=== PATIENT | female | born 1995 | race Hispanic/Latino ===

== ENCOUNTER 2017-06-21 19:45 | Inpatient (IN) | payer BC ==
--- NOTE | 2017-06-21 21:05 | ED PDOC ---
HPI: Abdomen Time Seen by Provider: 06/21/17 20:31 Chief Complaint (Nursing): Abdominal Pain Chief Complaint (Provider): Abdominal pain History Per: Patient History/Exam Limitations: no limitations Onset/Duration Of Symptoms: Days (2) Additional Complaint(s): Patient is a 21 y/o female with no significant past medical history presenting to the emergency department for intermittent epigastric pain ongoing for two days. Reports that she always had stomach problems especially with eating. Patient was referred by her PMD for an abdominal CT to rule out appendicitis. Denies any current pain, fever, vomiting, nausea, constipation, or other complaints. PMD: Dr. Patricia Sykes Past Medical History Reviewed: Historical Data, Nursing Documentation, Vital Signs Vital Signs: Last Vital Signs Temp 98.3 F 06/22/17 01:11 Pulse 74 06/22/17 01:11 Resp 19 06/22/17 01:11 BP 113/72 06/22/17 01:11 Pulse Ox 96 06/22/17 01:11 - Family History Family History: States: Unknown Family Hx - Social History Current smoker - smoking cessation education provided: No Ex-Smoker (has not smoked in the last 12 months): No Alcohol: Social Drugs: Denies - Home Medications Home Medications: Ambulatory Orders Medication Instructions Recorded No Known Home Med 06/22/17 - Allergies Allergies/Adverse Reactions: Allergies Allergy/AdvReac Type Severity Reaction Status Date / Time No Known Allergies Allergy Verified 06/21/17 19:53 Review of Systems ROS Statement: Except As Marked, All Systems Reviewed And Found Negative Constitutional: Negative for: Fever Gastrointestinal: Positive for: Abdominal Pain (epigastric). Negative for: Nausea, Vomiting, Constipation Physical Exam - Reviewed Nursing Documentation Reviewed: Yes Vital Signs Reviewed: Yes - Physical Exam Appears: Positive for: Well, Non-toxic, No Acute Distress Head Exam: Positive for: ATRAUMATIC, NORMAL INSPECTION, NORMOCEPHALIC Skin: Positive for: Normal Color, Warm, Dry Eye Exam: Positive for: Normal appearance Neck: Positive for: Normal Cardiovascular/Chest: Positive for: Regular Rate, Rhythm Respiratory: Negative for: Accessory Muscle Use, Respiratory Distress Gastrointestinal/Abdominal: Positive for: Normal Exam, Soft, Tenderness ( Minimal lower abdominal tenderness bilaterally, and epigastric tenderness) Extremity: Positive for: Normal ROM. Negative for: Pedal Edema Neurologic/Psych: Positive for: Alert, Oriented (x3) - Laboratory Results Result Diagrams: 06/21/17 21:33 06/21/17 21:33 - ECG O2 Sat by Pulse Oximetry: 100 (RA) Pulse Ox Interpretation: Normal Medical Decision Making Medical Decision Making: Time: 20:45 Initial impression: gastritis vs. appendicitis vs. ulcer Initial plan: Abdominal/pelvic CT scan CMP Lactic Acid test Lipase ED Urine CBC Pepcid 20 mg Blood Culture Urine Culture Urinalysis Reevaluation Time: 23:14 CT Abd and Pelvis w/ IV Contrast Findings: Lower thorax: No acute findings. ABDOMEN: Liver: Unremarkable. No mass. Gallbladder and bile ducts: Unremarkable. No calcified stones. No ductal dilation. Pancreas: Unremarkable. No mass. No ductal dilation. Spleen: Unremarkable. No splenomegaly. Adrenals: Unremarkable. No mass. Kidneys and ureters: Unremarkable. No solid mass. No hydronephrosis. Stomach and bowel: Unremarkable. No obstruction. No mucosal thickening. Appendix: The appendix measures approximately 8 mm in diameter with a fluid- filled lumen and wall thickness of approximately 3 mm with slight enhancement. There is question of slight surrounding induration may reflect early appendicitis. PELVIS: Bladder: The urinary bladder is decompressed but appears grossly normal. Reproductive: IUD in the lower uterine segment and cervix. ABDOMEN and PELVIS: Intraperitoneal space: Unremarkable. No free air. No significant fluid collection. Bones/joints: No acute fracture. No dislocation. Soft tissues: Unremarkable. Vasculature: Unremarkable. No abdominal aortic aneurysm. Lymph nodes: Unremarkable. No enlarged lymph nodes. IMPRESSION: 1. Low position of an IUD in the lower uterine segment and cervix. 2. The appendix measures 8 mm with a fluid-filled lumen and slight thickening and enhancement of the wall. There is question of slight surrounding induration and findings may reflect early appendicitis. 3. Otherwise negative CT abdomen/pelvis. No epigastric abnormalities are identified. 2330 Pt. made NPO. Spoke with Dr. Stroud who agrees to consult. associate vice president aware. Dr. Griffith accepts patient. Results explained to patient and questions answered. Patient states pain is 1/10 at this time. Scribe Attestation: Documented by Jyoti Schultz and Chay Monk, acting as scribes for Wayne Reid MD. Provider Scribe Attestation: All medical record entries made by the Scribe were at my direction and personally dictated by me. I have reviewed the chart and agree that the record accurately reflects my personal performance of the history, physical exam, medical decision making, and the department course for this patient. I have also personally directed, reviewed, and agree with the discharge instructions and disposition. Disposition - Clinical Impression Clinical Impression: Appendicitis - Disposition Disposition Time: 23:30 Condition: STABLE
[2017-06-21 21:42] LABS: BASO % 0.3 % (0.0-2.0); EOS # 0.1 K/uL (0.0-0.7); EOS % 0.6 % (0.0-4.0); HEMOGLOBIN 12.6 g/dL (12.0-16.0); LYMPH # 2.9 K/uL (1.0-4.3); LYMPH % 25.6 % (20.0-40.0); MEAN CELL VOLUME 89.7 fl (81.0-99.0); MEAN CORPUSCULAR HGB CONC 33.5 g/dL (33.0-37.0); MEAN PLATELET VOLUME 7.3 fl (7.2-11.7); MONO # 0.7 K/uL (0.0-0.8); MONO % 6.4 % (0.0-10.0); NEUT # 7.7 K/uL (1.8-7.0); NEUT % 67.1 % (50.0-75.0); NRBC % 0.1 % (0.0-0.0); RBC 4.2 Mil/uL (3.80-5.20); RED CELL DISTRIBUTION WIDTH 13.5 % (11.5-14.5); WHITE BLOOD COUNT 11.5 K/uL (4.8-10.8)
[2017-06-21 21:47] LABS: ALB/GLOB RATIO 1.3 (1.0-2.1); ALBUMIN 4.6 g/dL (3.5-5.0); ALT/SGPT 50 U/L (9-52); AST/SGOT 30 U/L (14-36); BLOOD UREA NITROGEN 8 mg/dl (7-17); CALCIUM 9.7 mg/dL (8.4-10.2); GFR AFRICAN-AMERICAN > 60; GFR NON-AFRICAN AMERICAN > 60; LIPASE 77 U/L (23-300)
[2017-06-21] MEDS ORDERED: Sodium Chloride 0.9% 50 ML IV ONE (22:03)
[2017-06-21] MEDS ORDERED: Iohexol 300 100 ML IJ ONE (22:03)
[2017-06-21 22:32] LABS: SQUAMOUS EPITHIAL 2 /hpf (0-5); URINE BACTERIA RARE (<OCC); URINE BILIRUBIN NEGATIVE (NEGATIVE); URINE BLOOD SMALL (NEGATIVE); URINE CLARITY CLEAR (Clear); URINE COLOR STRAW (YELLOW); URINE GLUCOSE (UA) NEG (Normal); URINE LEUKOCYTE ESTERASE SMALL Leu/uL (Negative); URINE NITRATE NEGATIVE (NEGATIVE); URINE PROTEIN NEGATIVE (NEGATIVE); URINE UROBILINOGEN 0.2-1.0 mg/dL (0.2-1.0)
[2017-06-21] MEDS ORDERED: Piperacillin/Tazobact 3.375 GM in Sodium Chloride 0.9% 100 ML IVPB STA (23:30)
[2017-06-21] MEDS ORDERED: Sodium Chloride 0.9% 1,000 ML IV STA (23:31)
--- NOTE | 2017-06-21 23:39 | CP.PCM.HP ---
History of Present Illness - History of Present Illness History of Present Illness: PCP: Patricia Sykes MD Chief complaint: Abdominal Pain HPI: 21 years old female with hx of stomach upsets where she takes TUMS. She comes referred by her PMD with 2 days of a localized, dull intermittent Periumbilical, epigastric pain with intensity 6/10. No fever, nausea, vomits. No diarrhea ,dysuria nor urinary frequencies. 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 ; works as a teacher FH: States: Unknown Family Hx Allergies: NKDA Medication: Reviewed - Social History Current smoker - smoking cessation education provided: No Ex-Smoker (has not smoked in the last 12 months): No Alcohol: Social Drugs: Denies - Allergies Allergies/Adverse Reactions: Present on Admission - Present on Admission Any Indicators Present on Admission: No History of DVT/PE: No History of Uncontrolled Diabetes: No Urinary Catheter: No Decubitus Ulcer Present: No Review of Systems - Constitutional Constitutional: absent: Chills, Fatigue, Fever, Headache - EENT Eyes: Requires Corrective Lenses. absent: Diplopia, Floaters, Sees Flashes Ears: absent: Decreased Hearing, Ear Discharge, Ear Pain, Tinnitus Nose/Mouth/Throat: absent: Epistaxis, Nasal Congestion, Nasal Discharge, Sinus Pain, Sinus Pressure - Cardiovascular Cardiovascular: absent: Chest Pain, Dyspnea, Edema - Respiratory Respiratory: absent: Cough, Dyspnea, Wheezing, Stridor, Chest Congestion - Gastrointestinal Gastrointestinal: Abdominal Pain. absent: Constipation, Diarrhea, Vomiting - Genitourinary Genitourinary: absent: Dysuria, Flank Pain, Hematuria, Urinary Frequency - Musculoskeletal Musculoskeletal: absent: Arthralgias, Back Pain, Joint Swelling, Numbness - Integumentary Integumentary: absent: Pruritus, Rash, Skin Ulcer, Sores, Striae, Swelling - Neurological Neurological: absent: Confusion, Dizziness, Focal Weakness, Headaches, Weakness - Psychiatric Psychiatric: absent: Anxiety, Depression, Panic Attacks - Endocrine Endocrine: absent: Palpitations, Polydipsia, Polyphagia, Polyuria - Hematologic/Lymphatic Hematologic: absent: Easy Bleeding, Easy Bruising Past Patient History - Past Social History Smoking Status: Never Smoked Chewing Tobacco Use: No Cigar Use: No Alcohol: Social Drugs: Denies Home Situation {Lives}: With Family - CARDIAC Hx Cardiac Disorders: No - PULMONARY Hx Asthma: Yes (Childhood Asthma) - NEUROLOGICAL Hx Neurological Disorder: No - HEENT Hx HEENT Problems: No - RENAL Hx Chronic Kidney Disease: No - ENDOCRINE/METABOLIC Hx Endocrine Disorders: No - HEMATOLOGICAL/ONCOLOGICAL Hx Blood Disorders: No - INTEGUMENTARY Hx Dermatological Problems: No - MUSCULOSKELETAL/RHEUMATOLOGICAL Hx Musculoskeletal Disorders: No - GASTROINTESTINAL Hx Gastrointestinal Disorders: No - GENITOURINARY/GYNECOLOGICAL Hx Genitourinary Disorders: No - PSYCHIATRIC Hx Psychophysiologic Disorder: No Hx Substance Use: No - SURGICAL HISTORY Hx Surgeries: No - ANESTHESIA Hx Anesthesia: No Meds Allergies/Adverse Reactions: Allergies Allergy/AdvReac Type Severity Reaction Status Date / Time No Known Allergies Allergy Verified 06/21/17 19:53 Physical Exam - Constitutional Appears: No Acute Distress - Head Exam Head Exam: ATRAUMATIC, NORMAL INSPECTION, NORMOCEPHALIC - Eye Exam Eye Exam: EOMI, Normal appearance Pupil Exam: NORMAL ACCOMODATION, PERRL - ENT Exam ENT Exam: Mucous Membranes Moist, Normal Exam, Normal External Ear Exam - Neck Exam Neck exam: Positive for: Full Rom, Normal Inspection. Negative for: Lymphadenopathy, Tenderness - Respiratory Exam Respiratory Exam: Clear to Auscultation Bilateral. absent: Rales, Rhonchi, Wheezes - Cardiovascular Exam Cardiovascular Exam: REGULAR RHYTHM, RRR, +S1, +S2. absent: Gallop, JVD, +S4 - GI/Abdominal Exam GI & Abdominal Exam: Normal Bowel Sounds, Soft. absent: Organomegaly, Tenderness - Rectal Exam Rectal Exam: Deferred - Extremities Exam Extremities exam: Positive for: normal inspection. Negative for: full ROM, joint swelling, pedal edema - Back Exam Back exam: NORMAL INSPECTION. absent: CVA tenderness (L), CVA tenderness (R) - Neurological Exam Neurological exam: Alert, CN II-XII Intact, Oriented x3, Reflexes Normal - Psychiatric Exam Psychiatric exam: Normal Affect, Normal Mood - Skin Skin Exam: Dry, Intact, Normal Color, Warm Results - Vital Signs Recent Vital Signs: Last Vital Signs Temp 98.3 F 06/21/17 19:49 Pulse 72 06/21/17 19:49 Resp 16 06/21/17 19:49 BP 123/77 06/21/17 19:49 Pulse Ox 100 06/21/17 23:20 - Labs Result Diagrams: 06/21/17 21:33 06/21/17 21:33 Labs: Laboratory Results - last 24 hr 06/21/17 06/21/17 06/21/17 21:33 21:33 21:33 WBC 11.5 H RBC 4.20 Hgb 12.6 Hct 37.6 MCV 89.7 MCH 30.0 MCHC 33.5 RDW 13.5 Plt Count 277 MPV 7.3 Neut % (Auto) 67.1 Lymph % (Auto) 25.6 [place] % (Auto) 6.4 Eos % (Auto) 0.6 Baso % (Auto) 0.3 Neut # 7.7 H Lymph # 2.9 [place] # 0.7 Eos # 0.1 Baso # 0.0 Sodium 141 Potassium 4.1 Chloride 102 Carbon Dioxide 26 Anion Gap 17 BUN 8 Creatinine 0.6 L Est GFR ( Amer) > 60 Est GFR (Non-Af Amer) > 60 Random Glucose 91 Lactic Acid Calcium 9.7 Total Bilirubin 0.4 AST 30 ALT 50 Alkaline Phosphatase 74 Total Protein 8.1 Albumin 4.6 Globulin 3.6 Albumin/Globulin Ratio 1.3 Lipase 77 Urine Color Straw Urine Clarity Clear Urine pH 6.0 Ur Specific [place] 1.012 Urine Protein Negative Urine Glucose (UA) Neg Urine Ketones Trace Urine Blood Small Urine Nitrate Negative Urine Bilirubin Negative Urine Urobilinogen 0.2-1.0 Ur Leukocyte Esterase Small Urine RBC (Auto) 7 H Urine Microscopic WBC 8 H Ur Squamous Epith Cells 2 Urine Bacteria Rare 06/21/17 21:33 WBC RBC Hgb Hct MCV MCH MCHC RDW Plt Count MPV Neut % (Auto) Lymph % (Auto) [place] % (Auto) Eos % (Auto) Baso % (Auto) Neut # Lymph # [place] # Eos # Baso # Sodium Potassium Chloride Carbon Dioxide Anion Gap BUN Creatinine Est GFR ( Amer) Est GFR (Non-Af Amer) Random Glucose Lactic Acid 0.8 Calcium Total Bilirubin AST ALT Alkaline Phosphatase Total Protein Albumin Globulin Albumin/Globulin Ratio Lipase Urine Color Urine Clarity Urine pH Ur Specific [place] Urine Protein Urine Glucose (UA) Urine Ketones Urine Blood Urine Nitrate Urine Bilirubin Urine Urobilinogen Ur Leukocyte Esterase Urine RBC (Auto) Urine Microscopic WBC Ur Squamous Epith Cells Urine Bacteria - Imaging and Cardiology CT scan - abdomen Status: Report reviewed by me Additional comment: EXAM: CT Abdomen and Pelvis With Intravenous Contrast EXAM DATE/TIME: Exam ordered 06/21/2017 8:45 PM FINDINGS: Lower thorax: No acute findings. ABDOMEN: Liver: Unremarkable. No mass. Gallbladder and bile ducts: Unremarkable. No calcified stones. No ductal dilation. Pancreas: Unremarkable. No mass. No ductal dilation. Spleen: Unremarkable. No splenomegaly. Adrenals: Unremarkable. No mass. Kidneys and ureters: Unremarkable. No solid mass. No hydronephrosis. Stomach and bowel: Unremarkable. No obstruction. No mucosal thickening. Appendix: The appendix measures approximately 8 mm in diameter with a fluid- filled lumen and wall thickness of approximately 3 mm with slight enhancement. There is question of slight surrounding induration may reflect early appendicitis. PELVIS: Bladder: The urinary bladder is decompressed but appears grossly normal. Reproductive: IUD in the lower uterine segment and cervix. ABDOMEN and PELVIS: Intraperitoneal space: Unremarkable. No free air. No significant fluid collection. Bones/joints: No acute fracture. No dislocation. Soft tissues: Unremarkable. Vasculature: Unremarkable. No abdominal aortic aneurysm. Lymph nodes: Unremarkable. No enlarged lymph nodes. IMPRESSION: 1. Low position of an IUD in the lower uterine segment and cervix. 2. The appendix measures 8 mm with a fluid-filled lumen and slight thickening and enhancement of the wall. There is question of slight surrounding induration and findings may reflect early appendicitis. 3. Otherwise negative CT abdomen/pelvis. No epigastric abnormalities are identified. Assessment & Plan - Assessment and Plan (Free Text) Assessment: #. Early Appendicites #. Leukocytosis Plan: 21 years old female with hx of stomach upsets where she takes TUMS. She comes referred by her PMD with 2 days of a localized, dull intermittent Periumbilical , epigastric pain with intensity 6/10. No fever, nausea, vomits. No diarrhea , dysuria nor urinary frequencies. #. Early Appendicites causing abdominal pain - Consult Surgery Dr Lind - NPO - IV fluids - Zosyn - Pepcid #. Leukocytosis - Follow CBC # Stress ulcer prophylaxis with Pepcid #. DVT prophylaxis with SCD #. Code Status: Full - Date & Time Date: 06/21/17 Time: 23:39
--- NOTE | 2017-06-22 00:15 | CP.PCM.CON ---
History of Present Illness - History of Present Illness History of Present Illness: General Surgery Consult Note for Dr. Parish Reason for Consult: abdominal pain 21 F with no significant past medical history presents to [facility] for abdominal pain. She states that she has had the pain for about 1.5 days. Patient went to Urgent care facility yesterday because pain had gotten worse and they referred her for Ct scan. This prompted her to be seen at [facility]. Patient denies associated nausea/vomiting or diarrhea. 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 She reports that she has been very fatigued last few days. She rates pain as moderate in severity. She describes pain as intermittent and dull located in the epigastric/ periumbilical. She denies any exacerbating or alleviating factors. Denies fever/ chills, chest pain, SOB, incontinence, melena, hematochezia, urinary symptoms. CT abdomen/pelvis reveals 8mm fluid filled appendix with thickening. 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 ; works as a teacher Review of Systems - Review of Systems All systems: reviewed and no additional remarkable complaints except (as per HPI ) Past Patient History - Past Social History Alcohol: Social Drugs: Denies - PSYCHIATRIC Hx Substance Use: No - SURGICAL HISTORY Hx Surgeries: No - ANESTHESIA Hx Anesthesia: No Meds Allergies/Adverse Reactions: Allergies Allergy/AdvReac Type Severity Reaction Status Date / Time No Known Allergies Allergy Verified 06/21/17 19:53 - Medications Medications: Current Medications Famotidine (Pepcid) 20 mg IVP DAILY JEYSON Sodium Chloride (Sodium Chloride 0.9%) 1,000 mls @ 250 mls/hr IV .Q4H STA Stop: 06/22/17 03:30 Piperacillin Sod/Tazobactam (Sod 3.375 gm/ Sodium Chloride) 100 mls @ 100 mls/ hr IVPB STAT STA PRN Reason: Protocol Stop: 06/22/17 00:29 Piperacillin Sod/Tazobactam (Sod 3.375 gm/ Sodium Chloride) 100 mls @ 100 mls/ hr IVPB Q6 JEYSON PRN Reason: Protocol Ondansetron HCl (Zofran Inj) 4 mg IVP Q4 PRN PRN Reason: Nausea/Vomiting Physical Exam - Constitutional Appears: Well, No Acute Distress - Head Exam Head Exam: ATRAUMATIC, NORMOCEPHALIC - Eye Exam Eye Exam: EOMI, Normal appearance Pupil Exam: PERRL - ENT Exam ENT Exam: Mucous Membranes Moist - Respiratory Exam Respiratory Exam: NORMAL BREATHING PATTERN - Cardiovascular Exam Cardiovascular Exam: REGULAR RHYTHM - GI/Abdominal Exam GI & Abdominal Exam: Soft, Tenderness (epigastric/periumbilical). absent: Distended, Firm, Guarding, Hernia, Rebound, Rigid Additional comments: (-)Mcburney's, Rovsing, obturator - Extremities Exam Extremities exam: Positive for: normal capillary refill, pedal pulses present. Negative for: calf tenderness - Back Exam Back exam: absent: CVA tenderness (L), CVA tenderness (R) - Neurological Exam Neurological exam: Alert, CN II-XII Intact, Oriented x3 - Psychiatric Exam Psychiatric exam: Normal Affect, Normal Mood - Skin Skin Exam: Dry, Intact, Normal Color, Warm Results - Vital Signs Recent Vital Signs: Last Vital Signs Temp 98.3 F 06/21/17 19:49 Pulse 72 06/21/17 19:49 Resp 16 06/21/17 19:49 BP 123/77 06/21/17 19:49 Pulse Ox 100 06/21/17 23:20 - Labs Result Diagrams: 06/21/17 21:33 06/21/17 21:33 Labs: Laboratory Results - last 24 hr 06/21/17 06/21/17 06/21/17 21:33 21:33 21:33 WBC 11.5 H RBC 4.20 Hgb 12.6 Hct 37.6 MCV 89.7 MCH 30.0 MCHC 33.5 RDW 13.5 Plt Count 277 MPV 7.3 Neut % (Auto) 67.1 Lymph % (Auto) 25.6 [place] % (Auto) 6.4 Eos % (Auto) 0.6 Baso % (Auto) 0.3 Neut # 7.7 H Lymph # 2.9 [place] # 0.7 Eos # 0.1 Baso # 0.0 Sodium 141 Potassium 4.1 Chloride 102 Carbon Dioxide 26 Anion Gap 17 BUN 8 Creatinine 0.6 L Est GFR ( Amer) > 60 Est GFR (Non-Af Amer) > 60 Random Glucose 91 Lactic Acid Calcium 9.7 Total Bilirubin 0.4 AST 30 ALT 50 Alkaline Phosphatase 74 Total Protein 8.1 Albumin 4.6 Globulin 3.6 Albumin/Globulin Ratio 1.3 Lipase 77 Urine Color Straw Urine Clarity Clear Urine pH 6.0 Ur Specific [place] 1.012 Urine Protein Negative Urine Glucose (UA) Neg Urine Ketones Trace Urine Blood Small Urine Nitrate Negative Urine Bilirubin Negative Urine Urobilinogen 0.2-1.0 Ur Leukocyte Esterase Small Urine RBC (Auto) 7 H Urine Microscopic WBC 8 H Ur Squamous Epith Cells 2 Urine Bacteria Rare 06/21/17 21:33 WBC RBC Hgb Hct MCV MCH MCHC RDW Plt Count MPV Neut % (Auto) Lymph % (Auto) [place] % (Auto) Eos % (Auto) Baso % (Auto) Neut # Lymph # [place] # Eos # Baso # Sodium Potassium Chloride Carbon Dioxide Anion Gap BUN Creatinine Est GFR ( Amer) Est GFR (Non-Af Amer) Random Glucose Lactic Acid 0.8 Calcium Total Bilirubin AST ALT Alkaline Phosphatase Total Protein Albumin Globulin Albumin/Globulin Ratio Lipase Urine Color Urine Clarity Urine pH Ur Specific [place] Urine Protein Urine Glucose (UA) Urine Ketones Urine Blood Urine Nitrate Urine Bilirubin Urine Urobilinogen Ur Leukocyte Esterase Urine RBC (Auto) Urine Microscopic WBC Ur Squamous Epith Cells Urine Bacteria Assessment & Plan - Assessment and Plan (Free Text) Plan: 21 F with abdominal pain with CT findings of 8mm fluid filled appendix with thickening -NPO -IV antibiotics -IV fluids -Analgesics/anti-emetics PRN -Plan for OR later today -Discussed with Dr. Марина Nation PGY1
[2017-06-22] MEDS ORDERED: Piperacillin/Tazobact 3.375 gm Inj IVPB ONE (00:40)
[2017-06-22] MEDS ORDERED: HYDROmorphone 0.5 mg/0.5 ml ISec IVP PRN (01:38)
[2017-06-22] MEDS: Lactated Ringer's 1,000 ML IV SCH ×2 (01:46→05:33)
[2017-06-22] MEDS: Piperacillin/Tazobact 3.375 GM in Sodium Chloride 0.9% 100 ML IVPB SCH ×2 (05:33→10:59)
[2017-06-22 06:26] LABS: BASO % 0.5 % (0.0-2.0); EOS # 0.1 K/uL (0.0-0.7); EOS % 1.2 % (0.0-4.0); HEMOGLOBIN 11.9 g/dL (12.0-16.0); LYMPH # 2.4 K/uL (1.0-4.3); LYMPH % 31.1 % (20.0-40.0); MEAN CORPUSCULAR HEMOGLOBIN 30.1 pg (27.0-31.0); MEAN CORPUSCULAR HGB CONC 33.8 g/dL (33.0-37.0); MEAN PLATELET VOLUME 7.5 fl (7.2-11.7); MONO # 0.7 K/uL (0.0-0.8); MONO % 9.1 % (0.0-10.0); NEUT # 4.5 K/uL (1.8-7.0); NEUT % 58.1 % (50.0-75.0); RBC 3.94 Mil/uL (3.80-5.20); RED CELL DISTRIBUTION WIDTH 13.1 % (11.5-14.5); WHITE BLOOD COUNT 7.8 K/uL (4.8-10.8)
[2017-06-22 08:17] VITALS: BP 117/73; PULSE 64; RESP 20; TEMP 97.9; O2SAT 98
--- NOTE | 2017-06-22 08:26 | CP.PCM.PN ---
Subjective - Date & Time of Evaluation Date of Evaluation: 06/22/17 Time of Evaluation: 08:21 - Subjective Subjective: 21 years old female with no significant PMHx was seen and evaluated at bedside for acute stomach pain. Patient is AAOx3 and is in NAD. Patient denies of any acute overnight events. Patient reports that she is feeling a lot better than she did yesterday but still feels little tenderness on the right side of her belly. Denies of any recent F/N/V/C/SOB/CP/headache/diarrhea. Denies of having any other complains at this time. Objective - Vital Signs/Intake and Output Vital Signs (last 24 hours): Temp Pulse Resp BP Pulse Ox 97.9 F 64 20 117/73 98 06/22/17 08:16 06/22/17 08:16 06/22/17 08:16 06/22/17 08:16 06/22/17 08:16 - Medications Medications: Current Medications Famotidine (Pepcid) 20 mg IVP DAILY [facility] Hydromorphone HCl (Dilaudid) 0.5 mg IVP Q3H PRN PRN Reason: Pain, severe (8-10) Piperacillin Sod/Tazobactam (Sod 3.375 gm/ Sodium Chloride) 100 mls @ 100 mls/ hr IVPB Q6H JEYSON PRN Reason: Protocol Last Admin: 06/22/17 05:33 Dose: 100 mls/hr Lactated Ringer's (Lactated Ringer's) 1,000 mls @ 125 mls/hr IV .Q8H JEYSON Last Admin: 06/22/17 05:33 Dose: 125 mls/hr Ondansetron HCl (Zofran Inj) 4 mg IVP Q4 PRN PRN Reason: Nausea/Vomiting - Labs Labs: 06/22/17 05:45 06/21/17 21:33 - Constitutional Appears: Well, Non-toxic, No Acute Distress - Head Exam Head Exam: ATRAUMATIC - Eye Exam Eye Exam: Normal appearance - ENT Exam ENT Exam: Normal Exam - Neck Exam Neck Exam: Full ROM, Normal Inspection - Respiratory Exam Respiratory Exam: Clear to Ausculation Bilateral, NORMAL BREATHING PATTERN. absent: Rales, Rhonchi, Wheezes - Cardiovascular Exam Cardiovascular Exam: REGULAR RHYTHM, +S1, +S2 - GI/Abdominal Exam GI & Abdominal Exam: Soft, Normal Bowel Sounds Additional comments: dull periumbilical, epigastric tenderness - Rectal Exam Rectal Exam: Deferred - Extremities Exam Extremities Exam: Full ROM, Normal Capillary Refill, Normal Inspection. absent : Calf Tenderness, Joint Swelling, Pedal Edema, Tenderness - Back Exam Back Exam: Full ROM, NORMAL INSPECTION - Neurological Exam Neurological Exam: Alert, Awake, Oriented x3 - Psychiatric Exam Psychiatric exam: Normal Affect, Normal Mood - Skin Skin Exam: Intact, Normal Color, Warm Assessment and Plan - Assessment and Plan (Free Text) Assessment: 21 years old female with no significant PMHx was at bedside for acute stomach pain secondary to early appendicitis Plan: 1). Early Appendicites causing abdominal pain - CT Abdomen - Reveals 8mm fluid filled appendix with thickening. - Surgery Consult - Dr Lind; Recommendations appreciated - no surgery recommended at this time - GI consult - Dr. Gregory - Outpatient Endoscopy - Regular diet - Abx - IV fluids - Zosyn - Pepcid 2). DVT prophylaxis - SCD - Ambulating
--- NOTE | 2017-06-22 08:47 | CP.PCM.PCO ---
Physician Communication Note - Physician Communication Note Physician Communication Note: No appendicitis - start diet - enema - d/c if tolerates w/ BM
--- NOTE | 2017-06-22 09:37 | CT ---
PROCEDURE: CT Abdomen and Pelvis with contrast HISTORY: epig/berta-umb pain COMPARISON: None. TECHNIQUE: Contrast dose: 90 cc Omnipaque 300 Radiation dose: Total exam DLP = 401.09 mGy-cm. This CT exam was performed using one or more of the following dose reduction techniques: Automated exposure control, adjustment of the mA and/or kV according to patient size, and/or use of iterative reconstruction technique. FINDINGS: LOWER THORAX: Unremarkable. LIVER: Unremarkable. No gross lesion or ductal dilatation. GALLBLADDER AND BILE DUCTS: Unremarkable. PANCREAS: Unremarkable. No gross lesion or ductal dilatation. SPLEEN: Unremarkable. ADRENALS: Unremarkable. No mass. KIDNEYS AND URETERS: Unremarkable. No hydronephrosis. No solid mass. VASCULATURE: Unremarkable. No aortic aneurysm. BOWEL: Unremarkable. No obstruction. No gross mural thickening. APPENDIX: Mildly edematous appendix, thickening contrast-enhancing wall of the appendix consistent with early acute appendicitis. PERITONEUM: Unremarkable. No free fluid. No free air. LYMPH NODES: Unremarkable. No enlarged lymph nodes. BLADDER: Unremarkable. REPRODUCTIVE: Low-lying intrauterine contraceptive device, of portions are in the cervix common the remainder in the lower uterine segment. Multiple subcentimeter follicles. BONES: No acute fracture. OTHER FINDINGS: None. IMPRESSION: Early acute appendicitis. Additional benign and/or incidental findings described above. Concordant results (preliminary interpretation) provided by [employer]. Procedure Completed: 22:16 Preliminary ([facility]) Report: Dictated and Authenticated: 23:14 Final Interpretation: 09:35 2017.
[2017-06-22] MEDS ORDERED: Pantoprazole 20 mg EC Tab PO SCH (10:15)
--- NOTE | 2017-06-22 13:04 | CP.PCM.CON ---
History of Present Illness - History of Present Illness History of Present Illness: PGY4 Initial GI Consult Silvana Barksdale is a 21F w/ no significant medical history who presented to the ER with complaints if abdominal pain. Pt states that the onset was sudden and 2 days ago. She notes that after she had a free sample of coffee at [employer], she started to experience severe abd pain located in the epigastrum. She denies any radiation of the pain. She notes that the pain never alleviated which brought her to Urgent Care. Panda refered her to ER for further eval and to rule out apendicitis. In the ER she was noted to have appediceal fluid collection but no inflammation. CT findings as per radiologist suggested early appendicitis. She was started on Zosyn and surgery recommended conservative management. GI was consulted for further eval. She notes that she started to become constipated after receiving pain medication in the ER. She was able to have a BM today after an enema. She denies any hx of constipation at home. She notes that she had a period of a few months , last year when she started to have chronic diarrhea. She denies any fever, chills or diaphoresis. 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 PMHx: Asthma PSHx: None Social hx: denies any illicit drug use or smoking, social drinker Endo hx: none Family hx: her mother has GI issues but pt does not recall diagnosis or tx ROS: 12-point ROS conducted neg other than above Past Patient History - Past Medical History & Family History Past Medical History?: Yes - Past Social History Alcohol: Social Drugs: Denies - CARDIAC Hx Cardiac Disorders: No - PULMONARY Hx Respiratory Disorders: Yes Hx Asthma: Yes (Childhood Asthma) Hx Bronchitis: Yes Hx Pneumonia: Yes - NEUROLOGICAL Hx Neurological Disorder: No - HEENT Hx HEENT Problems: No - RENAL Hx Chronic Kidney Disease: No - ENDOCRINE/METABOLIC Hx Endocrine Disorders: No - HEMATOLOGICAL/ONCOLOGICAL Hx Blood Disorders: No - INTEGUMENTARY Hx Dermatological Problems: No - MUSCULOSKELETAL/RHEUMATOLOGICAL Hx Musculoskeletal Disorders: No Hx Falls: No - GASTROINTESTINAL Hx Gastrointestinal Disorders: Yes Other/Comment: Hx of stomach upsets after eating too fast or spicy food as per pt - GENITOURINARY/GYNECOLOGICAL Hx Genitourinary Disorders: No - PSYCHIATRIC Hx Substance Use: No - SURGICAL HISTORY Hx Surgeries: No - ANESTHESIA Hx Anesthesia: No Meds Allergies/Adverse Reactions: Allergies Allergy/AdvReac Type Severity Reaction Status Date / Time No Known Allergies Allergy Verified 06/21/17 19:53 - Medications Medications: Current Medications Famotidine (Pepcid) 20 mg IVP DAILY [facility] Last Admin: 06/22/17 08:47 Dose: 20 mg Hydromorphone HCl (Dilaudid) 0.5 mg IVP Q3H PRN PRN Reason: Pain, severe (8-10) Last Admin: 06/22/17 11:08 Dose: 0.5 mg Piperacillin Sod/Tazobactam (Sod 3.375 gm/ Sodium Chloride) 100 mls @ 100 mls/ hr IVPB Q6H [facility] PRN Reason: Protocol Last Admin: 06/22/17 10:59 Dose: 100 mls/hr Lactated Ringer's (Lactated Ringer's) 1,000 mls @ 125 mls/hr IV .Q8H [facility] Last Admin: 06/22/17 05:33 Dose: 125 mls/hr Ondansetron HCl (Zofran Inj) 4 mg IVP Q4 PRN PRN Reason: Nausea/Vomiting Last Admin: 06/22/17 11:18 Dose: 4 mg Pantoprazole Sodium (Protonix Ec Tab) 20 mg PO DAILY [facility] Last Admin: 06/22/17 10:58 Dose: 20 mg Physical Exam - Constitutional Appears: No Acute Distress - Head Exam Head Exam: ATRAUMATIC, NORMOCEPHALIC - Eye Exam Eye Exam: Normal appearance - ENT Exam ENT Exam: Mucous Membranes Moist - Respiratory Exam Respiratory Exam: Clear to Auscultation Bilateral, NORMAL BREATHING PATTERN. absent: Rales, Rhonchi, Wheezes, Respiratory Distress - Cardiovascular Exam Cardiovascular Exam: REGULAR RHYTHM, +S1, +S2 - GI/Abdominal Exam GI & Abdominal Exam: Normal Bowel Sounds, Soft, Tenderness (slight tenderness in the epigastrum). absent: Guarding, Hernia, Organomegaly - Extremities Exam Extremities exam: Negative for: joint swelling, pedal edema - Neurological Exam Neurological exam: Alert, Oriented x3 - Psychiatric Exam Psychiatric exam: Normal Affect, Normal Mood - Skin Skin Exam: Dry, Intact, Normal Color, Warm Results - Vital Signs Recent Vital Signs: Last Vital Signs Temp 97.9 F 06/22/17 08:16 Pulse 64 06/22/17 08:16 Resp 20 06/22/17 08:16 BP 117/73 06/22/17 08:16 Pulse Ox 98 06/22/17 08:16 - Labs Result Diagrams: 06/22/17 05:45 06/21/17 21:33 Labs: Laboratory Results - last 24 hr 06/21/17 06/21/17 06/21/17 21:33 21:33 21:33 WBC 11.5 H RBC 4.20 Hgb 12.6 Hct 37.6 MCV 89.7 MCH 30.0 MCHC 33.5 RDW 13.5 Plt Count 277 MPV 7.3 Neut % (Auto) 67.1 Lymph % (Auto) 25.6 [place] % (Auto) 6.4 Eos % (Auto) 0.6 Baso % (Auto) 0.3 Neut # 7.7 H Lymph # 2.9 [place] # 0.7 Eos # 0.1 Baso # 0.0 Sodium 141 Potassium 4.1 Chloride 102 Carbon Dioxide 26 Anion Gap 17 BUN 8 Creatinine 0.6 L Est GFR ( Amer) > 60 Est GFR (Non-Af Amer) > 60 Random Glucose 91 Lactic Acid Calcium 9.7 Total Bilirubin 0.4 AST 30 ALT 50 Alkaline Phosphatase 74 Total Protein 8.1 Albumin 4.6 Globulin 3.6 Albumin/Globulin Ratio 1.3 Lipase 77 Urine Color Straw Urine Clarity Clear Urine pH 6.0 Ur Specific [place] 1.012 Urine Protein Negative Urine Glucose (UA) Neg Urine Ketones Trace Urine Blood Small Urine Nitrate Negative Urine Bilirubin Negative Urine Urobilinogen 0.2-1.0 Ur Leukocyte Esterase Small Urine RBC (Auto) 7 H Urine Microscopic WBC 8 H Ur Squamous Epith Cells 2 Urine Bacteria Rare 06/21/17 06/22/17 21:33 05:45 WBC 7.8 RBC 3.94 Hgb 11.9 L Hct 35.0 MCV 89.0 MCH 30.1 MCHC 33.8 RDW 13.1 Plt Count 268 MPV 7.5 Neut % (Auto) 58.1 Lymph % (Auto) 31.1 [place] % (Auto) 9.1 Eos % (Auto) 1.2 Baso % (Auto) 0.5 Neut # 4.5 Lymph # 2.4 [place] # 0.7 Eos # 0.1 Baso # 0.0 Sodium Potassium Chloride Carbon Dioxide Anion Gap BUN Creatinine Est GFR ( Amer) Est GFR (Non-Af Amer) Random Glucose Lactic Acid 0.8 Calcium Total Bilirubin AST ALT Alkaline Phosphatase Total Protein Albumin Globulin Albumin/Globulin Ratio Lipase Urine Color Urine Clarity Urine pH Ur Specific [place] Urine Protein Urine Glucose (UA) Urine Ketones Urine Blood Urine Nitrate Urine Bilirubin Urine Urobilinogen Ur Leukocyte Esterase Urine RBC (Auto) Urine Microscopic WBC Ur Squamous Epith Cells Urine Bacteria Assessment & Plan - Assessment and Plan (Free Text) Assessment: Silvana Barksdale is a 21F w/ no sig medical hx who presents to the ER with abd pain. Her pain is located in the epigastrum Abd pain etiology unknown; DDx: gastritis, early appendicitis, PUD, masked gastroenteritis Constipation likely opiod induced Early appendicitis? Plan: -abx as per surgery -recommend continues protonix or omeprazaole 40mg PO in the AM -advance diet as tolerated -send for stool studies -decrease opiod, likely causing constipation ' -recommend f/u with Dr. Gregory in 2 weeks at her office -EGD as an oupt -avoid NSAIDs D/W Dr. Gregory
--- NOTE | 2017-06-22 14:40 | CP.PCM.DIS ---
<[facility] Last Filed: 06/22/17 14:28> Provider - Provider Date of Admission: 06/21/17 23:30 Attending physician: Jerrod Griffith Time Spent in preparation of Discharge (in minutes): 20 Hospital Course - Lab Results Lab Results: Most Recent Lab Values WBC 7.8 K/uL (4.8-10.8) 06/22/17 05:45 RBC 3.94 Mil/uL (3.80-5.20) 06/22/17 05:45 Hgb 11.9 g/dL (12.0-16.0) L 06/22/17 05:45 Hct 35.0 % (34.0-47.0) 06/22/17 05:45 MCV 89.0 fl (81.0-99.0) 06/22/17 05:45 MCH 30.1 pg (27.0-31.0) 06/22/17 05:45 MCHC 33.8 g/dL (33.0-37.0) 06/22/17 05:45 RDW 13.1 % (11.5-14.5) 06/22/17 05:45 Plt Count 268 K/uL (130-400) 06/22/17 05:45 MPV 7.5 fl (7.2-11.7) 06/22/17 05:45 Neut % (Auto) 58.1 % (50.0-75.0) 06/22/17 05:45 Lymph % (Auto) 31.1 % (20.0-40.0) 06/22/17 05:45 [place] % (Auto) 9.1 % (0.0-10.0) 06/22/17 05:45 Eos % (Auto) 1.2 % (0.0-4.0) 06/22/17 05:45 Baso % (Auto) 0.5 % (0.0-2.0) 06/22/17 05:45 Neut # 4.5 K/uL (1.8-7.0) 06/22/17 05:45 Lymph # 2.4 K/uL (1.0-4.3) 06/22/17 05:45 [place] # 0.7 K/uL (0.0-0.8) 06/22/17 05:45 Eos # 0.1 K/uL (0.0-0.7) 06/22/17 05:45 Baso # 0.0 K/uL (0.0-0.2) 06/22/17 05:45 Sodium 141 mmol/l (132-148) 06/21/17 21:33 Potassium 4.1 MMOL/L (3.6-5.0) 06/21/17 21:33 Chloride 102 mmol/L (98-107) 06/21/17 21:33 Carbon Dioxide 26 mmol/L (22-30) 06/21/17 21:33 Anion Gap 17 (10-20) 06/21/17 21:33 BUN 8 mg/dl (7-17) 06/21/17 21:33 Creatinine 0.6 mg/dl (0.7-1.2) L 06/21/17 21:33 Est GFR ( Amer) > 60 06/21/17 21:33 Est GFR (Non-Af Amer) > 60 06/21/17 21:33 Random Glucose 91 mg/dL (65-105) 06/21/17 21:33 Lactic Acid 0.8 MMOL/L (0.7-2.1) 06/21/17 21: Calcium 9.7 mg/dL (8.4-10.2) 06/21/17 21:33 Total Bilirubin 0.4 mg/dl (0.2-1.3) 06/21/17 21:33 AST 30 U/L (14-36) 06/21/17 21:33 ALT 50 U/L (9-52) 06/21/17 21:33 Alkaline Phosphatase 74 U/L (38-126) 06/21/17 21:33 Total Protein 8.1 G/DL (6.3-8.2) 06/21/17 21: Albumin 4.6 g/dL (3.5-5.0) 06/21/17 21:33 Globulin 3.6 gm/dL (2.2-3.9) 06/21/17 21:33 Albumin/Globulin Ratio 1.3 (1.0-2.1) 06/21/17 21:33 Lipase 77 U/L (23-300) 06/21/17 21:33 Urine Color Straw (YELLOW) 06/21/17 21:33 Urine Clarity Clear (Clear) 06/21/17: Urine pH 6.0 (5.0-8.0) 06/21/17: Ur Specific [place] 1.012 (1.003-1.030) 06/21/17: Urine Protein Negative mg/dL (NEGATIVE) 06/21/17: Urine Glucose (UA) Neg mg/dL (Normal) 06/21/17: Urine Ketones Trace mg/dL (NEGATIVE) 06/21/17: Urine Blood Small (NEGATIVE) 06/21/17 21: Urine Nitrate Negative (NEGATIVE) 06/21/17: Urine Bilirubin Negative (NEGATIVE) 06/21/17: Urine Urobilinogen 0.2-1.0 mg/dL (0.2-1.0) 06/21/17: Ur Leukocyte Esterase Small Mathew/uL (Negative) 06/21/17: Urine RBC (Auto) 7 /hpf (0-3) H 06/21/17: Urine Microscopic WBC 8 /hpf (0-5) H 06/21/17: Ur Squamous Epith Cells 2 /hpf (0-5) 06/21/17: Urine Bacteria Rare (<OCC) 06/21/17: - Hospital Course Hospital Course: 21 years old female patient with no significant PMHx was admitted to the hospital for acute stomach pain with suspicion of appendicitis. Upon arrival to the ED, patient reported that she had been having 2 days of a localized, dull intermittent periumbilical, epigastric pain with intensity 6/10. Patient was observed to have elevated WBC in the ED. Abdominal CT revealed 8mm fluid filled appendix with thickening. Patient was placed on NPO and was given zosyn and fluids. Patient was seen by general surgery and GI. Patient's condition improved while in the hospital. General surgery recommended for patient to go home with Augmentin 875 for 10 days. Patient will be following up with Dr. Gregory as an outpatient. 1). Early Appendicites causing abdominal pain - CT Abdomen - Reveals 8mm fluid filled appendix with thickening. - Surgery Consult - Dr Lnid; Recommendations appreciated - no surgery recommended at this time - GI consult - Dr. Gregory - Outpatient Endoscopy - Regular diet - Abx as per surgery - Protonix - IV fluids - Zosyn - Pepcid - Date & Time of H&P Date of H&P: 06/22/17 Time of H&P: 14:28 Discharge Exam - Head Exam Head Exam: ATRAUMATIC, NORMOCEPHALIC - Eye Exam Eye Exam: Normal appearance Pupil Exam: NORMAL ACCOMODATION - ENT Exam ENT Exam: Normal Exam - Neck Exam Neck exam: Full Rom, Normal Inspection - Respiratory Exam Respiratory Exam: Clear to PA & Lateral, NORMAL BREATHING PATTERN, UNREMARKABLE. absent: Rales, Rhonchi, Wheezes - Cardiovascular Exam Cardiovascular Exam: REGULAR RHYTHM, +S1, +S2 - GI/Abdominal Exam GI & Abdominal Exam: Normal Bowel Sounds, Soft, Unremarkable. absent: Mass, Organomegaly - Rectal Exam Rectal Exam: Deferred - Extremities Exam Extremities exam: full ROM, normal capillary refill, normal inspection, pedal pulses present - Back Exam Back exam: FULL ROM, NORMAL INSPECTION - Neurological Exam Neurological exam: Alert, Oriented x3 - Psychiatric Exam Psychiatric exam: Normal Affect, Normal Mood - Skin Skin Exam: Intact, Normal Color, Warm Discharge Plan - Discharge Medications Prescriptions: Amoxicillin/Clavulanate [Augmentin 875 MG-125 MG] 1 tab PO Q12 #20 tab Pantoprazole [Protonix EC Tab] 40 mg PO DAILY #30 ect - Follow Up Plan Condition: STABLE Disposition: HOME/ ROUTINE Instructions: Acute Abdominal Pain (DC) Additional Instructions: follow up with in 7-10days Referrals: Bri MOHAN,MD Moni [Medical Doctor] - Vivek Parish MD [Staff Provider] - <Mellisa Melendez - Last Filed: 06/22/17 15:33> Provider - Provider Date of Admission: 06/21/17 23:30 Attending physician: Jerrod Griffith [facility] Course - Lab Results Lab Results: Most Recent Lab Values WBC 7.8 K/uL (4.8-10.8) 06/22/17 05:45 RBC 3.94 Mil/uL (3.80-5.20) 06/22/17 05:45 Hgb 11.9 g/dL (12.0-16.0) L 06/22/17 05:45 Hct 35.0 % (34.0-47.0) 06/22/17 05:45 MCV 89.0 fl (81.0-99.0) 06/22/17 05:45 MCH 30.1 pg (27.0-31.0) 06/22/17 05:45 MCHC 33.8 g/dL (33.0-37.0) 06/22/17 05:45 RDW 13.1 % (11.5-14.5) 06/22/17 05:45 Plt Count 268 K/uL (130-400) 06/22/17 05:45 MPV 7.5 fl (7.2-11.7) 06/22/17 05:45 Neut % (Auto) 58.1 % (50.0-75.0) 06/22/17 05:45 Lymph % (Auto) 31.1 % (20.0-40.0) 06/22/17 05:45 [place] % (Auto) 9.1 % (0.0-10.0) 06/22/17 05:45 Eos % (Auto) 1.2 % (0.0-4.0) 06/22/17 05:45 Baso % (Auto) 0.5 % (0.0-2.0) 06/22/17 05:45 Neut # 4.5 K/uL (1.8-7.0) 06/22/17 05:45 Lymph # 2.4 K/uL (1.0-4.3) 06/22/17 05:45 [place] # 0.7 K/uL (0.0-0.8) 06/22/17 05:45 Eos # 0.1 K/uL (0.0-0.7) 06/22/17 05:45 Baso # 0.0 K/uL (0.0-0.2) 06/22/17 05:45 Sodium 141 mmol/l (132-148) 06/21/17 21:33 Potassium 4.1 MMOL/L (3.6-5.0) 06/21/17 21:33 Chloride 102 mmol/L (98-107) 06/21/17 21:33 Carbon Dioxide 26 mmol/L (22-30) 06/21/17 21:33 Anion Gap 17 (10-20) 06/21/17 21:33 BUN 8 mg/dl (7-17) 06/21/17 21:33 Creatinine 0.6 mg/dl (0.7-1.2) L 06/21/17 21: Est GFR ( Amer) > 60 06/21/17 21: Est GFR (Non-Af Amer) > 60 06/21/17 21: Random Glucose 91 mg/dL (65-105) 06/21/17 21: Lactic Acid 0.8 MMOL/L (0.7-2.1) 06/21/17 21: Calcium 9.7 mg/dL (8.4-10.2) 06/21/17 21: Total Bilirubin 0.4 mg/dl (0.2-1.3) 06/21/17 21: AST 30 U/L (14-36) 06/21/17 21: ALT 50 U/L (9-52) 06/21/17 21: Alkaline Phosphatase 74 U/L (38-126) 06/21/17 21: Total Protein 8.1 G/DL (6.3-8.2) 06/21/17 21: Albumin 4.6 g/dL (3.5-5.0) 06/21/17 21: Globulin 3.6 gm/dL (2.2-3.9) 06/21/17 21: Albumin/Globulin Ratio 1.3 (1.0-2.1) 06/21/17 21: Lipase 77 U/L (23-300) 06/21/17 21:33 Urine Color Straw (YELLOW) 06/21/17 21: Urine Clarity Clear (Clear) 06/21/17 21: Urine pH 6.0 (5.0-8.0) 06/21/17 21: Ur Specific [place] 1.012 (1.003-1.030) 06/21/17 21: Urine Protein Negative mg/dL (NEGATIVE) 06/21/17: Urine Glucose (UA) Neg mg/dL (Normal) 06/21/17: Urine Ketones Trace mg/dL (NEGATIVE) 06/21/17 21: Urine Blood Small (NEGATIVE) 06/21/17 21: Urine Nitrate Negative (NEGATIVE) 06/21/17: Urine Bilirubin Negative (NEGATIVE) 06/21/17 21: Urine Urobilinogen 0.2-1.0 mg/dL (0.2-1.0) 06/21/17 21:33 Ur Leukocyte Esterase Small Mathew/uL (Negative) 06/21/17 21:33 Urine RBC (Auto) 7 /hpf (0-3) H 06/21/17 21:33 Urine Microscopic WBC 8 /hpf (0-5) H 06/21/17 21:33 Ur Squamous Epith Cells 2 /hpf (0-5) 06/21/17 21:33 Urine Bacteria Rare (<OCC) 06/21/17 21:33 Attending/Attestation - Attestation I have personally seen and examined this patient.: Yes I have fully participated in the care of the patient.: Yes I have reviewed all pertinent clinical information, including history, physical exam and plan: Yes Notes (Text): 06/22/17 15:32 seen examined discussed [facility] resident dr. tiara ann. agree with findings and plan as above to note: zosyn adjusted to Augmentin, Zofran also given for nausea. Patient may take motrin for pain control. For follow up with PCP in one week.
--- NOTE | 2017-06-22 16:36 | CP.PCM.CON ---
History of Present Illness - History of Present Illness History of Present Illness: Addendum to Dr Lucero note- Not able to sign his note due to computer glitch Patient seen and examined with GI fellow earlier in the day. This is a 21 yr old F with no significant medical history who presents to the ER with abdominal pain in setting of acute appendicitis which was ruled out by surgical service. GI requested to see the patient for gastritis. Denies nausea, vomiting. States has intermittent epigastric pain. NO history of NSIAD use. Continue PPI and follow up in office in 2 weeks for outpatient EGD Past Patient History - Past Medical History & Family History Past Medical History?: Yes - Past Social History Alcohol: Social Drugs: Denies - CARDIAC Hx Cardiac Disorders: No - PULMONARY Hx Respiratory Disorders: Yes Hx Asthma: Yes (Childhood Asthma) Hx Bronchitis: Yes Hx Pneumonia: Yes - NEUROLOGICAL Hx Neurological Disorder: No - HEENT Hx HEENT Problems: No - RENAL Hx Chronic Kidney Disease: No - ENDOCRINE/METABOLIC Hx Endocrine Disorders: No - HEMATOLOGICAL/ONCOLOGICAL Hx Blood Disorders: No - INTEGUMENTARY Hx Dermatological Problems: No - MUSCULOSKELETAL/RHEUMATOLOGICAL Hx Musculoskeletal Disorders: No Hx Falls: No - GASTROINTESTINAL Hx Gastrointestinal Disorders: Yes Other/Comment: Hx of stomach upsets after eating too fast or spicy food as per pt - GENITOURINARY/GYNECOLOGICAL Hx Genitourinary Disorders: No - PSYCHIATRIC Hx Substance Use: No - SURGICAL HISTORY Hx Surgeries: No - ANESTHESIA Hx Anesthesia: No Meds Home Medications: Home Medication List Medication Instructions Recorded Confirmed Type Amoxicillin/Clavulanate [Augmentin 1 tab PO Q12 #20 tab 06/22/17 Rx 875 MG-125 MG] Pantoprazole [Protonix EC Tab] 40 mg PO DAILY #30 ect 06/22/17 Rx Allergies/Adverse Reactions: Allergies Allergy/AdvReac Type Severity Reaction Status Date / Time No Known Allergies Allergy Verified 06/21/17 19:53 - Medications Medications: Current Medications Famotidine (Pepcid) 20 mg IVP DAILY [facility] Last Admin: 06/22/17 08:47 Dose: 20 mg Piperacillin Sod/Tazobactam (Sod 3.375 gm/ Sodium Chloride) 100 mls @ 100 mls/ hr IVPB Q6H [facility] PRN Reason: Protocol Last Admin: 06/22/17 10:59 Dose: 100 mls/hr Lactated Ringer's (Lactated Ringer's) 1,000 mls @ 125 mls/hr IV .Q8H [facility] Last Admin: 06/22/17 05:33 Dose: 125 mls/hr Ketorolac Tromethamine (Toradol) 30 mg IVP Q6 PRN PRN Reason: Pain, severe (8-10) Ketorolac Tromethamine (Toradol) 15 mg IVP Q6 PRN PRN Reason: Pain, moderate (4-7) Last Admin: 06/22/17 13:40 Dose: 15 mg Ondansetron HCl (Zofran Inj) 4 mg IVP Q4 PRN PRN Reason: Nausea/Vomiting Last Admin: 06/22/17 11:18 Dose: 4 mg Pantoprazole Sodium (Protonix Ec Tab) 40 mg PO DAILY [facility] Results - Vital Signs Recent Vital Signs: Last Vital Signs Temp 97.9 F 06/22/17 08:16 Pulse 64 06/22/17 08:16 Resp 20 06/22/17 08:16 BP 117/73 06/22/17 08:16 Pulse Ox 98 06/22/17 08:16 - Labs Result Diagrams: 06/22/17 05:45 06/21/17 21:33 Labs: Laboratory Results - last 24 hr 06/21/17 06/21/17 06/21/17 21:33 21:33 21:33 WBC 11.5 H RBC 4.20 Hgb 12.6 Hct 37.6 MCV 89.7 MCH 30.0 MCHC 33.5 RDW 13.5 Plt Count 277 MPV 7.3 Neut % (Auto) 67.1 Lymph % (Auto) 25.6 Ness % (Auto) 6.4 Eos % (Auto) 0.6 Baso % (Auto) 0.3 Neut # 7.7 H Lymph # 2.9 Ness # 0.7 Eos # 0.1 Baso # 0.0 Sodium 141 Potassium 4.1 Chloride 102 Carbon Dioxide 26 Anion Gap 17 BUN 8 Creatinine 0.6 L Est GFR ( Amer) > 60 Est GFR (Non-Af Amer) > 60 Random Glucose 91 Lactic Acid Calcium 9.7 Total Bilirubin 0.4 AST 30 ALT 50 Alkaline Phosphatase 74 Total Protein 8.1 Albumin 4.6 Globulin 3.6 Albumin/Globulin Ratio 1.3 Lipase 77 Urine Color Straw Urine Clarity Clear Urine pH 6.0 Ur Specific [place] 1.012 Urine Protein Negative Urine Glucose (UA) Neg Urine Ketones Trace Urine Blood Small Urine Nitrate Negative Urine Bilirubin Negative Urine Urobilinogen 0.2-1.0 Ur Leukocyte Esterase Small Urine RBC (Auto) 7 H Urine Microscopic WBC 8 H Ur Squamous Epith Cells 2 Urine Bacteria Rare 06/21/17 06/22/17 21:33 05:45 WBC 7.8 RBC 3.94 Hgb 11.9 L Hct 35.0 MCV 89.0 MCH 30.1 MCHC 33.8 RDW 13.1 Plt Count 268 MPV 7.5 Neut % (Auto) 58.1 Lymph % (Auto) 31.1 Ness % (Auto) 9.1 Eos % (Auto) 1.2 Baso % (Auto) 0.5 Neut # 4.5 Lymph # 2.4 Ness # 0.7 Eos # 0.1 Baso # 0.0 Sodium Potassium Chloride Carbon Dioxide Anion Gap BUN Creatinine Est GFR ( Amer) Est GFR (Non-Af Amer) Random Glucose Lactic Acid 0.8 Calcium Total Bilirubin AST ALT Alkaline Phosphatase Total Protein Albumin Globulin Albumin/Globulin Ratio Lipase Urine Color Urine Clarity Urine pH Ur Specific [place] Urine Protein Urine Glucose (UA) Urine Ketones Urine Blood Urine Nitrate Urine Bilirubin Urine Urobilinogen Ur Leukocyte Esterase Urine RBC (Auto) Urine Microscopic WBC Ur Squamous Epith Cells Urine Bacteria
[2017-06-24] MEDS ORDERED: Pantoprazole 40 mg EC Tab PO SCH (09:00)
== END 2017-06-22 16:45 | disposition home or self-care (01) | DRG 395 ==
LOC: H.ER 19:45 → H.ERHOLD 23:30 → H.MEDSURG1 06-22 01:02
PROVIDERS: ADMIT Internal Medicine; ATTEND Internal Medicine
DX: K37 Unspecified appendicitis (principal); D72.829 Elevated white blood cell count, unspecified; J45.909 Unspecified asthma, uncomplicated; K59.03 Drug induced constipation; T40.2X5A Adverse effect of other opioids, initial encounter